=== PATIENT | male | born 1960 | race Caucasian/White ===

== ENCOUNTER 2016-07-22 01:35 | Emergency (ER) | payer OTHER ==
[~2016-07-22] VITALS: Ht 165.1 cm; Wt 74.8 kg
[2016-07-22] MEDS ORDERED: ACETAMINOPHEN ES 500 MG TABLET ONE (01:53)
[2016-07-22] MEDS ORDERED: ACETAMINOPHEN 325 MG TABLET PO ONE (02:00)
[2016-07-22 03:10] VITALS: BP 153/93
== END 2016-07-22 03:03 | disposition home or self-care (01) ==
LOC: ER 01:36
DX: R51 Headache (principal); I10 Essential (primary) hypertension; F10.20 Alcohol dependence, uncomplicated
CPT/HCPCS: 99283; A4606; Z7610

== ENCOUNTER 2018-05-13 20:37 | Emergency (ER) | payer MEDICARE, OTHER ==
[~2018-05-13] VITALS: Ht 175.3 cm; Wt 73.5 kg
[~2018-05-13 20:37] MED LIST: ASPI-1169 PO; BISA-79 GT; CLOP75TA15 PO; DOCU100C36 PO; FAMO40TA7 PO; FINA5TAB11 PO; ISOS20TA8 PO; LOSA50TA3 PO; METO50TA16 PO; ROSU40TA PO
--- NOTE | 2018-05-13 20:45 | NUR ---
Pt bib family d/t CP, 2/10 on scale on assessment. Pt is A, O/4, walks without assist, breathing spontaneously to RA, in no apparent distress.
--- NOTE | 2018-05-13 21:10 | NUR ---
HL g22 LAC inserted by YUNI Moore, Labs drawn.
[2018-05-13 21:17] LABS: BASOPHILS % (AUTO) 0.9 % (0.0-2.0); HEMATOCRIT 39 % (39-51); HEMOGLOBIN 12.9 g/dL (13.5-17.5); LYMPHOCYTES % (AUTO) 32.3 % (20.0-44.0); MEAN CORPUSCULAR HGB CONC 33 g/dl (31.0-36.0); MEAN CORPUSCULAR VOLUME 87 fL (80-96); MONOCYTES # (AUTO) 0.3 /CMM (0.1-1.30); MONOCYTES % (AUTO) 7.9 % (2.0-12.0); NEUTROPHILS # (AUTO) 1.7 /CMM (1.8-8.9); NEUTROPHILS % (AUTO) 52.9 % (43.0-81.0); PLATELET COUNT (AUTO) 167 /CMM (150-450); RED BLOOD CELL COUNT(AUTO) 4.43 MIL/uL (4.5-6.0); WHITE BLOOD COUNT (AUTO) 3.2 K/uL (4.3-11.0)
--- NOTE | 2018-05-13 21:32 | NUR ---
CXR in progress at BS
[2018-05-13 21:36] LABS: ALBUMIN 3.5 g/dL (3.4-5.0); BILIRUBIN,DIRECT 0.1 mg/dL (0.0-0.2); BILIRUBIN,TOTAL 0.4 mg/dL (0.2-1.0); CALCIUM, SERUM 8.7 mg/dL (8.5-10.1); CREATININE 1.3 mg/dL (0.6-1.3); POTASSIUM 3.6 mmol/L (3.5-5.1)
--- NOTE | 2018-05-13 21:45 | NUR ---
Pt resting in bed, denies chest discomfort at this time but states he feel short of breath. RR=21 on monitor. Family at BS
[2018-05-13] MEDS ORDERED: NITROGLYCERIN 0.4 MG/TAB BOTTLE ONE (21:51)
--- NOTE | 2018-05-13 21:54 | NUR ---
Pt stated his CP is back, son describes it as "bad pain." Dr Wolf notifed with orders.
[2018-05-13] MEDS ORDERED: ACETAMINOPHEN 325 MG TABLET ONE (21:57)
[2018-05-13] MEDS ORDERED: ACETAMINOPHEN 325 MG TABLET PO ONE (22:00)
[2018-05-13] MEDS ORDERED: NITROGLYCERIN 0.4 MG/TAB BOTTLE SL ONE ×2 (22:00→23:00)
--- NOTE | 2018-05-13 22:00 | NUR ---
EKG done. pt c/o headache that goes down to his neck, notified Dr. Wolf with order.
--- NOTE | 2018-05-13 22:04 | NUR ---
Pt and family refused tylenol for headache, family states "it's not helping him." made aware.
--- NOTE | 2018-05-13 22:26 | NUR ---
Family member at reports pt feels cold, clammy and sweaty. pt appears anxious at this time, no diaphoresis noted on assessment, denies CP. Dr. Wolf updated, warm blanket provided.
--- NOTE | 2018-05-13 22:55 | NUR ---
Marissa song in ED - 05/13/18 at 2308 by JUANCARLOS Pt taken to Radiology for CXR
--- NOTE | 2018-05-13 23:00 | NUR ---
Pt c/o another CP episode, 12/10 on scale, Dr. Vasquez notified with order
--- NOTE | 2018-05-13 23:10 | NUR ---
CALLED DR. DIAS 1ST TIME AFTER REPEAT TROP HE REQUESTED. LEFT MESSAGE. PT AND FAMILY INFORMED.
--- NOTE | 2018-05-13 23:40 | NUR ---
CALLED DR. DIAS AGAIN; LEFT MESSAGE
--- NOTE | 2018-05-13 23:52 | NUR ---
Pt ambulated to BR assisted by son, no CP reported.
--- NOTE | 2018-05-14 | NUR ---
CALLED DR. DIAS AGAIN FOR PT.
--- NOTE | 2018-05-14 00:25 | NUR ---
CALLED DR. DIAS 3RD TIME AND LEFT A MESSAGE. PT AND FAMILY INFORMED.
--- NOTE | 2018-05-14 00:30 | NUR ---
CALLED [facility] AND SPOKE TO [place] SUP ABOUT THE POSSIBILITY OF HAVING ANOTHER PHONE NUMBER FOR DR. DIAS AND SHE STATES "I HAVE THE SAME NUMBER [phone]".
--- NOTE | 2018-05-14 00:39 | NUR ---
PER PT AND FAMILY "IF HE DOESNT CALL BACK IN 30MINUTES, WE WILL JUST KEAVE AND F/U WITH HIM AT 1430 TODAY"
--- NOTE | 2018-05-14 00:45 | NUR ---
CALLED DR. DIAS AGAINA MARLIN LEFT A MESSAGE.
--- NOTE | 2018-05-14 01:20 | NUR ---
Patient discharged to home in stable condition. Written and verbal after care instructions given. Patient verbalizes understanding of instruction. Pt ambulatory with a steady gait.
[2018-05-14 01:32] VITALS: BP 151/93
== END 2018-05-14 01:33 | disposition home or self-care (01) ==
LOC: ER 20:38
DX: R07.89 Other chest pain (principal); I10 Essential (primary) hypertension; F10.10 Alcohol abuse, uncomplicated; Y90.9 Presence of alcohol in blood, level not specified; Z79.82 Long term (current) use of aspirin; Z98.61 Coronary angioplasty status
CPT/HCPCS: 36415; 71045-TC; 80048-TC; 80076-TC; 84484-TC; 85025-TC; 85730-TC; A4606; Z7610

== ENCOUNTER 2019-07-21 10:18 | Emergency (ER) | payer MEDICARE, OTHER ==
[~2019-07-21] VITALS: Ht 175.3 cm; Wt 75.3 kg
--- NOTE | 2019-07-21 10:41 | NUR ---
bibson, c/o chest pain feels like pins and needles started 924am, chills, +nausea, headache. On room air, breathing evenly and unlabored. connected to the monitor and pulse ox. kept comfortable, will continue to monitor accordingly.
[2019-07-21] MEDS ORDERED: ONDANSETRON HCL/PF 4 MG/2 ML VIAL ONE (10:52)
[2019-07-21] MEDS ORDERED: MORPHINE SULFATE INJ 4 MG/ML DISP.SYRIN ONE (10:52)
[2019-07-21 10:53] LABS: BASOPHILS % (AUTO) 1.1 % (0.0-2.0); EOSINOPHILS % (AUTO) 0.6 % (0.0-6.0); HEMATOCRIT 45 % (39-51); HEMOGLOBIN 14.9 g/dL (13.5-17.5); LYMPHOCYTES # (AUTO) 0.4 /CMM (0.8-4.8); LYMPHOCYTES % (AUTO) 16.3 % (20.0-44.0); MEAN CORPUSCULAR HGB CONC 33 g/dl (31.0-36.0); MEAN CORPUSCULAR VOLUME 88 fL (80-96); MONOCYTES % (AUTO) 0.3 % (2.0-12.0); NEUTROPHILS # (AUTO) 1.8 /CMM (1.8-8.9); NEUTROPHILS % (AUTO) 81.7 % (43.0-81.0); PLATELET COUNT (AUTO) 167 /CMM (150-450); RED BLOOD CELL COUNT(AUTO) 5.12 MIL/uL (4.5-6.0); WHITE BLOOD COUNT (AUTO) 2.2 K/uL (4.3-11.0)
[2019-07-21] MEDS ORDERED: ONDANSETRON HCL/PF 4 MG/2 ML VIAL IVP ONE (11:00)
[2019-07-21] MEDS ORDERED: MORPHINE SULFATE INJ 2 MG/ML DISP.SYRIN IV ONE (11:00)
[2019-07-21 11:01] LABS: CALCIUM, SERUM 9.6 mg/dL (8.5-10.1); CARBON DIOXIDE 28 mmol/L (21-32); CHLORIDE 106 mmol/L (98-107); CREATININE 1.3 mg/dL (0.6-1.3); GLUCOSE 98 mg/dL (74-106); POTASSIUM 3.6 mmol/L (3.5-5.1); SODIUM SERUM 144 mmol/L (136-145); UREA NITROGEN, BLOOD 24 mg/dL (7-18)
[2019-07-21 11:08] LABS: ALANINE AMINOTRANSFERASE 30 U/L (12-78); ALBUMIN 3.9 g/dL (3.4-5.0); ALKALINE PHOSPHATASE 68 U/L (46-116); ASPARTATE AMINOTRANSFERASE 17 U/L (15-37); BILIRUBIN,DIRECT 0.2 mg/dL (0.0-0.2); BILIRUBIN,TOTAL 0.8 mg/dL (0.2-1.0); LIPASE 163 U/L (73-393); TOTAL PROTEIN, SERUM 7.5 g/dL (6.4-8.2)
[2019-07-21 12:03] LABS: APPEARANCE,URINE Clear (CLEAR); BILIRUBIN,URINE Negative (NEGATIVE); BLOOD, URINE Trace-intact Ery/uL (NEGATIVE); COLOR,URINE Yellow (YELLOW); KETONES,URINE Negative (NEGATIVE); LEUKOCYTE ESTERASE ,URINE Negative (NEGATIVE); NITRITE, URINE Negative (NEGATIVE); PROTEIN,URINE Negative (NEGATIVE); UGLUCOSE Negative (NEGATIVE); UROBILINOGEN,URINE 0.2 EU/dL (0.2)
[2019-07-21 12:05] LABS: BACTERIA,URINE None seen /HPF (None Seen); SQUAMOUS EPITHELIAL CELL,UR Rare /HPF (None Seen); WBC,URINE 0-2 /HPF (0-3)
--- NOTE | 2019-07-21 12:36 | NUR ---
Patient ambulatory with a steady gait. Denies pain or discomfort. Family at bedside. IV removed. Catheter intact and site benign. Pressure and 4x4 applied to site. No bleeding noted.Patient discharged to home in stable condition. Written and verbal after care instructions given. Patient verbalizes understanding of instruction.
[2019-07-21 12:38] VITALS: BP 109/77
== END 2019-07-21 12:38 | disposition home or self-care (01) ==
LOC: ER 10:20
DX: B34.9 Viral infection, unspecified (principal); I10 Essential (primary) hypertension; Z95.818 Presence of other cardiac implants and grafts; Z79.899 Other long term (current) drug therapy; Z79.82 Long term (current) use of aspirin
CPT/HCPCS: 36415; 71045; 74176; 80048; 80076; 81001; 83690; 84484; 85025; 85730; 87804 ×2; 93005; 96374; 96375; 99285; J2270; J2405; 81000-TC

== ENCOUNTER 2019-07-22 12:58 | Emergency (ER) | payer MEDICARE, OTHER ==
[~2019-07-22] VITALS: Ht 175.3 cm; Wt 75.3 kg
[2019-07-22 13:03] VITALS: BP 144/80
[2019-07-22 15:17] LABS: BASOPHILS % (AUTO) 0.5 % (0.0-2.0); EOSINOPHILS % (AUTO) 0.2 % (0.0-6.0); HEMATOCRIT 37 % (39-51); HEMOGLOBIN 12.4 g/dL (13.5-17.5); LYMPHOCYTES # (AUTO) 0.1 /CMM (0.8-4.8); LYMPHOCYTES % (AUTO) 4.9 % (20.0-44.0); MEAN CORPUSCULAR HGB CONC 34 g/dl (31.0-36.0); MEAN CORPUSCULAR VOLUME 87 fL (80-96); MONOCYTES # (AUTO) 0.1 /CMM (0.1-1.30); NEUTROPHILS # (AUTO) 1.6 /CMM (1.8-8.9); NEUTROPHILS % (AUTO) 91.4 % (43.0-81.0); PLATELET COUNT (AUTO) 98 /CMM (150-450); RED BLOOD CELL COUNT(AUTO) 4.24 MIL/uL (4.5-6.0)
[2019-07-22 15:21] LABS: WHITE BLOOD COUNT (AUTO) 1.8 K/uL (4.3-11.0)
[2019-07-22] MEDS ORDERED: ONDANSETRON 4 MG TAB.RAPDIS ONE (15:23)
[2019-07-22 15:24] LABS: CALCIUM, SERUM 8.4 mg/dL (8.5-10.1); CREATININE 1.6 mg/dL (0.6-1.3); POTASSIUM 3.3 mmol/L (3.5-5.1)
[2019-07-22] MEDS: ONDANSETRON 4 MG TAB.RAPDIS PO ONE (15:31)
[2019-07-22 16:28] LABS: BAND % (MANUAL) 6 % (0.0-5.0); EOSINOPHILS % (MANUAL) 1 % (0-4); LYMPHOCYTES % (MANUAL) 2 % (16-48); MONOCYTES % (MANUAL) 2 % (0-11.0); NEUTROPHILS % (MANUAL) 89 (42-76)
== END 2019-07-22 16:04 | disposition home or self-care (01) ==
LOC: ER 13:00
DX: K64.4 Residual hemorrhoidal skin tags (principal); K59.00 Constipation, unspecified; I10 Essential (primary) hypertension; E78.5 Hyperlipidemia, unspecified; Z95.818 Presence of other cardiac implants and grafts; Z79.899 Other long term (current) drug therapy; Z79.82 Long term (current) use of aspirin
CPT/HCPCS: 36415; 80048; 85025; 99283; Q0162

== ENCOUNTER 2020-11-14 11:49 | Emergency (ER) | payer MEDICARE, OTHER ==
[~2020-11-14] VITALS: Ht 170.2 cm; Wt 72.1 kg
[2020-11-14 11:58] VITALS: BP 113/84
--- NOTE | 2020-11-14 12:10 | NUR ---
DR. PITTS AT BEDSIDE FOR EVAL.
--- NOTE | 2020-11-14 12:23 | NUR ---
Patient discharged to home in stable condition. Written and verbal after care instructions given. Patient verbalizes understanding of instruction.
== END 2020-11-14 12:23 | disposition home or self-care (01) ==
LOC: ER 12:13
DX: K40.90 Unilateral inguinal hernia, without obstruction or gangrene, not specified as recurrent (principal); I10 Essential (primary) hypertension; Z98.890 Other specified postprocedural states; Z79.899 Other long term (current) drug therapy; Z79.82 Long term (current) use of aspirin
CPT/HCPCS: J7030

== ENCOUNTER 2021-04-26 23:00 | Inpatient (IN) | payer BC, OTHER ==
[~2021-04-26] VITALS: Ht 165.1 cm; Wt 74.8 kg
--- NOTE | 2021-04-26 23:21 | NUR ---
PT AAOX4. BIBSELF C/O L SIDED CP AND L UPPER BACK PAIN X1 HR POST ACUTE CARE NURSE PRACTITIONER. PLACED IN GOWN, ON MONITOR, AND PULSE OX. AWAITING ER MD FOR EVAL AND ORDERS. IV PLACED ON PT, BLOOD WORK COLLECTED, SENT TO LAB. ER EMT AT BEDSIDE FOR EKG.
[2021-04-26] MEDS ORDERED: ASPIRIN 325 MG TABLET ONE (23:28)
[2021-04-26] MEDS ORDERED: ASPIRIN 325 MG TABLET PO ONE (23:30)
[2021-04-26 23:36] LABS: BASOPHILS % (AUTO) 0.6 % (0.0-2.0); EOSINOPHILS % (AUTO) 2.1 % (0.0-6.0); HEMATOCRIT 44 % (39-51); HEMOGLOBIN 14.5 g/dL (13.5-17.5); LYMPHOCYTES # (AUTO) 1.1 K/uL (0.8-4.8); LYMPHOCYTES % (AUTO) 27.7 % (20.0-44.0); MEAN CORPUSCULAR HGB CONC 33 g/dl (31.0-36.0); MEAN CORPUSCULAR VOLUME 90 fL (80-96); MONOCYTES # (AUTO) 0.3 K/uL (0.1-1.30); MONOCYTES % (AUTO) 6.9 % (2.0-12.0); NEUTROPHILS # (AUTO) 2.5 K/uL (1.8-8.9); NEUTROPHILS % (AUTO) 62.7 % (43.0-81.0); PLATELET COUNT (AUTO) 179 K/uL (150-450); RED BLOOD CELL COUNT(AUTO) 4.88 MIL/uL (4.5-6.0)
--- NOTE | 2021-04-26 23:57 | NUR ---
RADIOLOGY AT BEDSIDE
[2021-04-27 00:05] LABS: ALBUMIN 3.6 g/dL (3.4-5.0); BILIRUBIN,DIRECT 0.1 mg/dL (0.0-0.2); BILIRUBIN,TOTAL 0.4 mg/dL (0.2-1.0); CALCIUM, SERUM 9.1 mg/dL (8.5-10.1); CREATININE 1.1 mg/dL (0.6-1.3); POTASSIUM 3.3 mmol/L (3.5-5.1); TOTAL PROTEIN, SERUM 7.3 g/dL (6.4-8.2)
--- NOTE | 2021-04-27 02:22 | NUR ---
SPOKE TO PT'S SON REGARDING PLAN OF CARE. AWARE PT WILL BE ADMITTED, AWAITING ADMITTING HOSPITAL INFO.
--- NOTE | 2021-04-27 04:08 | NUR ---
PT ALLERGIC TO [facility]
[2021-04-27] MEDS ORDERED: CLON0.1T PO (04:19)
[2021-04-27] MEDS ORDERED: ISOS20TA8 PO (04:19)
[2021-04-27] MEDS ORDERED: CARV6.25 PO (04:19)
[2021-04-27] MEDS ORDERED: FENO134C PO (04:19)
[2021-04-27] MEDS ORDERED: HYDR-3972 PO (04:19)
[2021-04-27] MEDS ORDERED: OMEP40CA21 PO (04:19)
[2021-04-27] MEDS ORDERED: AMLO-213 PO (04:19)
[2021-04-27] MEDS ORDERED: TAMS-12 PO (04:19)
[2021-04-27] MEDS ORDERED: TICA90TA PO (04:19)
--- NOTE | 2021-04-27 04:55 | NUR ---
TELE 304-2
--- NOTE | 2021-04-27 05:15 | NUR ---
YUNI notes Received report from YUNI Hunter
--- NOTE | 2021-04-27 05:36 | NUR ---
REPORT GIVEN TO RN FOR MAURICE
--- NOTE | 2021-04-27 05:40 | NUR ---
foot roentgenologist notes Received order telephone back read order from Dr. Sharma.
--- NOTE | 2021-04-27 05:45 | NUR ---
purchasing and claims supervisorburner tender notes Received Pt from YUNI Carlson. Pt is alert and orientedX4. Respiration is normal in room air. No SOB. No S/S of distress noted. Pt denies any pain at this time. IV site at LAC# 18 is clean, intact and flushes well. Tele monitor showed SR hr at 84. Reoriented Pt to the room and the use of call light. Pt is able to ambulates with a steady gait. Safety precautions is maintained. Will continue to monitor.
[2021-04-27 05:49] VITALS: BP 142/87
--- NOTE | 2021-04-27 06:10 | NUR ---
Chest Pain Addendum: 04/27/21 at 0610 by ANDRE PIERRE RN Amended: Links added. Addendum: 04/27/21 at 7247 by ANDRE PIERRE RN diagnose
[2021-04-27] MEDS ORDERED: HYDROCODONE/APAP 5/325MG TABLET PO PRN (06:30)
[2021-04-27] MEDS ORDERED: ACETAMINOPHEN 325 MG TABLET PO PRN (06:30)
[2021-04-27] MEDS ORDERED: CLONIDINE HCL 0.1 MG TABLET PO PRN (06:30)
--- NOTE | 2021-04-27 06:40 | NUR ---
length control tester closing notes Pt is resting in bed comfortable. Pt is alert and orientedX4. Respiration is normal. No SOB. No S/S of distress noted. VS is stable. IV site at LAC# 18 is clean, intact and flushes well. Kept Pt clean, dry and comfortable. Safety precautions is maintained. Will endorse to am nurse for MAURICE.
--- NOTE | 2021-04-27 07:25 | NUR ---
RN notes consent for CT angiogram is signed by Pt. Pt verbalize understanding.
--- NOTE | 2021-04-27 07:29 | NUR ---
WEBLOGIC DEVELOPER OPENING NOTES RECEIVED PT AWAKE IN BED IN NO ACUTE SIGNS OF DISTRESS. A/O X4. ABLE TO MAKE NEEDS KNOWN, DENIES PAIN OR ANY DISCOMFORTS AT THIS TIME. ON ROOM AIR, TOLERATING WELL WITH NO SOB NOTED. IV ACCESS ON LAC G#18 INTACT, PATENT AND FLUSHES WELL. PT ON EXTERNAL SCIENTIFIC DIRECTOR WITH CURRENT READING OF NSR, HR ON THE 70'S, NO C/O CARDIAC DISTRESS VOICED AT THIS TIME. SAFETY MEASURES IN LACE: BED IN LOWEST LOCKED POSITION WITH SR-UP X2. CALL LIGHT W/IN EASY REACH OF PT. WILL CONTINUE TO MONITOR PT ACCORDINGLY.
[2021-04-27 07:33] LABS: CALCIUM, SERUM 9.2 mg/dL (8.5-10.1); POTASSIUM 3.8 mmol/L (3.5-5.1)
[2021-04-27 07:39] LABS: BASOPHILS % (AUTO) 0.6 % (0.0-2.0); EOSINOPHILS % (AUTO) 2.4 % (0.0-6.0); HEMATOCRIT 44 % (39-51); HEMOGLOBIN 14.4 g/dL (13.5-17.5); LYMPHOCYTES # (AUTO) 1.1 K/uL (0.8-4.8); LYMPHOCYTES % (AUTO) 28.8 % (20.0-44.0); MEAN CORPUSCULAR HGB CONC 33 g/dl (31.0-36.0); MEAN CORPUSCULAR VOLUME 90 fL (80-96); MONOCYTES # (AUTO) 0.3 K/uL (0.1-1.30); MONOCYTES % (AUTO) 8.1 % (2.0-12.0); NEUTROPHILS # (AUTO) 2.4 K/uL (1.8-8.9); NEUTROPHILS % (AUTO) 60.1 % (43.0-81.0); PLATELET COUNT (AUTO) 171 K/uL (150-450); RED BLOOD CELL COUNT(AUTO) 4.88 MIL/uL (4.5-6.0)
--- NOTE | 2021-04-27 07:55 | NUR ---
RN NOTES RECEIVED CALL FROM WAREHOUSE ENGINEER KAELYN ZAVALA THAT PT'S HAS CRITICAL HIGH TROPONIN 5.168, DR MARI ON UNIT AND MADE AWARE.
[2021-04-27 08:00] VITALS: BP 143/90
[2021-04-27] MEDS ORDERED: FINASTERIDE (5 MG) 5 MG TABLET PO SCH (09:00)
[2021-04-27] MEDS ORDERED: TICAGRELOR 90 MG TABLET PO SCH (09:00)
[2021-04-27] MEDS ORDERED: ISOSORBIDE DINITRATE (20MG) 20 MG TABLET PO SCH (09:00)
[2021-04-27] MEDS ORDERED: ENOXAPARIN SODIUM 80 MG/0.8 ML DISP.SYRIN SQ SCH (09:00)
[2021-04-27] MEDS ORDERED: LOSARTAN POTASSIUM 50 MG TABLET PO SCH (09:00)
[2021-04-27] MEDS ORDERED: AMLODIPINE BESYLATE 10 MG TABLET PO SCH (09:00)
[2021-04-27] MEDS ORDERED: CARVEDILOL 12.5 MG TABLET PO SCH (09:00)
[2021-04-27] MEDS ORDERED: ASPIRIN 81 MG TAB.CHEW PO SCH (09:00)
[2021-04-27] MEDS ORDERED: TAMSULOSIN 0.4 MG CAP.SR.24H PO SCH (09:00)
[2021-04-27 12:04] VITALS: BP 92/59
[2021-04-27 16:00] VITALS: BP 95/57
--- NOTE | 2021-04-27 16:31 | NUR ---
RN DISCHARGED NOTES PT DISCHARGED TO [facility] FOR [facility] PER MD ORDER. CALLED AND REPORT GIVEN TO YUNI WOODS AND PT WILL GO TO RM [address] ZHOU, ARLYN. PT IS A/O X4. ABLE TO MAKE NEEDS KNOWN. V/S TAKEN, STABLE AND RECORDED. ALL BELONGING ACCOUNTED FOR AND SIGNED FORM BY PT. IV ACCESS KEPT IN PLACE. PT AND FAMILY AWARE OF TRANSFER AND PLAN OF CARE. PT LEFT UNIT AT 1600 VIA GURNEY ACCOMPANIED BY 2 ANDROID IOS DEVELOPER FROM [facility]. MD AND CHARGE NURSE AWARE OF DISCHARGE.
== END 2021-04-27 16:03 | disposition short-term general hospital (02) | DRG 282 ==
LOC: ER 23:06 → TELE 04-27 05:00
PROVIDERS: ADMIT Internal Medicine; ATTEND Internal Medicine
DX: I21.4 Non-ST elevation (NSTEMI) myocardial infarction (principal); I25.10 Atherosclerotic heart disease of native coronary artery without angina pectoris; Z95.5 Presence of coronary angioplasty implant and graft; E78.5 Hyperlipidemia, unspecified; I10 Essential (primary) hypertension; N40.0 Benign prostatic hyperplasia without lower urinary tract symptoms; Z79.82 Long term (current) use of aspirin; Z87.891 Personal history of nicotine dependence; Z20.822 Contact with and (suspected) exposure to COVID-19; I73.9 Peripheral vascular disease, unspecified
CPT/HCPCS: 36415; 71045-TC; 80048-TC; 80061-TC; 80076-TC; 83880; 84484-TC; 85025-TC; 85378-TC; 87081-TC; 93307-TC; C9803; G0378; J1650